=== PATIENT | female | born 1995 | race Caucasian/White ===

== ENCOUNTER → 2016-11-21 | Day surgery (SDC) | payer BC, OTHER | LOC: RAD 13:07 | PROVIDERS: ATTEND Family Medicine | PROC: BP0 Imaging, Non-Axial Upper Bones, Plain Radiography (ICD-10-PCS; principal; 2016-11-21) | DX: M75.92 Shoulder lesion, unspecified, left shoulder (principal); M25.512 Pain in left shoulder | CPT/HCPCS: 73222; 73040; 77002; A9576 ==

== ENCOUNTER 2018-07-14 08:35 | Day surgery (SDC) | payer BC, OTHER ==
[~2018-07-14 08:35] MED LIST: AMPICILLIN SODIUM 2 GM in NORMAL SALINE 100 ML IV PRN; OXYMETAZOLINE HCL 0.05% NASAL SPRAY 15 ML BOTTLE ONE
[2018-07-14] MEDS ORDERED: ONDANSETRON HCL INJ/PF 4 MG/2 ML SDV ONE (09:43)
[2018-07-14] MEDS ORDERED: SUCCINYLCHOLINE CHLORIDE INJ 200 MG/10 ML VIAL ONE (09:44)
[2018-07-14] MEDS ORDERED: PROPOFOL INJ 200 MG/20 ML VIAL IV ONE (09:44)
[2018-07-14] MEDS ORDERED: MIDAZOLAM 2 MG/2 ML INJ ONE (09:44)
[2018-07-14] MEDS ORDERED: DEXAMETHASONE SOD PHOS INJ 10 MG/1 ML VIAL ONE (09:44)
[2018-07-14] MEDS ORDERED: LIDOCAINE 0.5% INJ-PF (5 MG/ML) 50 ML SDV ONE (09:44)
[2018-07-14] MEDS ORDERED: FENTANYL CITRATE INJ/PF 100 MCG/2 ML AMPUL ONE (09:44)
[2018-07-14] MEDS ORDERED: HYDROCOD/ACETAMIN 7.5-325 MG/15 ML ORAL SOLN UDCUP ONE (10:52)
--- NOTE | 2018-07-14 18:11 | SURGICARE OPERATIVE REPORT E ---
[facility], [place] Operative Report NAME: JOSE ANTONIO PAT AGE: 23Y DATE OF SURGERY: 07/14/2018 ROOM: HISTORY: A 23-year-old female presents with a history of chronic tonsillitis. Presents today for a tonsillectomy. Informed consent was obtained from the patient. PREOPERATIVE DIAGNOSIS: CHRONIC TONSILLITIS. POSTOPERATIVE DIAGNOSIS: CHRONIC TONSILLITIS. OPERATION: Tonsillectomy. SURGEON: SHERIN SHERMAN MD ANESTHESIA: General endotracheal anesthesia. PROCEDURE: After receiving informed consent from the patient, she was taken to the operating room and placed supine on the operating table. After successful induction and intubation by Anesthesia, the patient was then turned 90 degrees, placed in Trendelenburg. Shoulder roll placed. Head rest placed and McIvor mouth gag inserted atraumatically into the oral cavity. This was then opened up. The soft palate was palpated and found to be normal. Red catheters were inserted down each nasal cavity to elevate the soft palate. The right tonsil was grasped with a tonsil tenaculum and pulled medially, dissected free from its tonsillar fossa using Bovie electrocautery. Hemostasis was obtained with suction and Bovie electrocautery. A similar procedure was done on the left side. Both tonsils were removed. The tonsils were about 2+ in size. Next, the nasopharynx along the oral cavity and oropharynx was irrigated with copious amounts of normal saline. No bleeding was noted. Orogastric tube inserted into the stomach and contents aspirated. McIvor mouth gag was then let down. No bleeding was noted. The red catheters were removed from the patient. The patient was given back to Anesthesia, who successfully extubated the patient without any complications. Estimated blood loss was about 5 mL. Fluids about 300 mL crystalloid. The patient was then transferred to the post anesthesia care unit with spontaneous respiration and no complication. DICTATING PHYSICIAN: SHERIN SHERMAN M.D. [id number] PHY#: [id number] ID: [id number] JOB#: [id number] ACCT: [id number] cc:SHERIN SHERMAN MD > [facility]
== END 2018-07-14 11:40 | disposition home or self-care (01) ==
LOC: SC 08:35
PROVIDERS: ATTEND Otolaryngology
DX: J35.01 Chronic tonsillitis (principal); Z88.5 Allergy status to narcotic agent
CPT/HCPCS: 88304 ×2; 42826; J0290; J2250; J3010; J3490 ×2; J0330; J2405; J2704; J1100; 170